=== PATIENT | male | born 1975 | race Two or more races ===

== ENCOUNTER → 2019-08-26 | Emergency (ER) | payer SELFPAY ==
[~2019-08-26] VITALS: Ht 175.3 cm; Wt 70.3 kg
--- NOTE | 2019-08-26 09:11 | NUR ---
ED Nurse Note: Pt came in for medical clearance and accompanied by ELVA. VSS on triage; pt's on RA, afebrile. Pt denies any pain nor discomfort.
[2019-08-26 09:14] VITALS: BP 154/68
[2019-08-26 09:17] VITALS: BP 154/68
--- NOTE | 2019-08-26 09:17 | NUR ---
ER DISCHARGE NOTE: Pt is cleared to be discharged per ERMD, pt is aox4, on room air, with stable vital signs. [employer] was given dc instructions, [employer] was able to verbalize understanding, pt id band removed. pt is able to ambulate with steady gait. pt took all belongings. Pt left ED escorted by [employer].
--- NOTE | 2019-08-26 12:11 | Emergency Room Report ---
History of Present Illness General Chief Complaint: Medical Clearance Source: Patient Present Illness HPI Patient was brought in for request of medical clearance for booking by [facility] department Patient at this time does not have any complaints Had apparently reported wrist discomfort from handcuffs He reports that that was yesterday however he does not feel any discomfort today The incident was being videotaped by [facility] department during the questioning Allergies: Coded Allergies: No Known Allergies (Unverified , 08/26/19) COVID-19 Screening Contact w/high risk pt: No Recent Travel to affected area: No Experienced COVID-19 symptoms?: No Patient History Past Medical History: see triage record Reviewed Nursing Documentation: PMH: Agreed; PSxH: Agreed Nursing Documentation-PM Past Medical History: No Stated History Review of Systems All Other Systems: negative except mentioned in HPI Physical Exam Vital Signs Date Time Temp Pulse Resp B/P (MAP) Pulse Ox O2 Delivery O2 Flow Rate FiO2 08/26/19 09:11 98.2 85 20 154/68 (96) 98 Room Air Sp02 EP Interpretation: reviewed, normal General Appearance: well appearing, no apparent distress Head: normocephalic, atraumatic Eyes: bilateral eye PERRL ENT: EOM grossly intact, normal pharynx Respiratory: no respiratory distress, no retraction, no accessory muscle use Musculoskeletal: normal inspection - Superficial macy noted in the shape of the handcuffs on both wrists, no obvious ecchymosis or bruising, wrist is freely mobile pulses intact Neurologic: alert, oriented x3 Psychiatric: normal inspection Skin: no rash Medical Decision Making Diagnostic Impression: Primary Impression: ok to book ER Course Patient essentially has no complaint at this time upon arrival reports that yesterday he felt the handcuffs were tight and were causing discomfort to the wrist however at this time he does not have any discomfort Patient has very minimal evaluation The evaluation through the emergency room reveals patient is hemodynamically stable and was further okay for booking Last Vital Signs Date Time Temp Pulse Resp B/P (MAP) Pulse Ox O2 Delivery O2 Flow Rate FiO2 08/26/19 09:17 98.2 85 21 154/68 99 Room Air Status: unchanged Disposition: LAW ENFORCEMENT IN CUST Condition: Stable Referrals: NOT CHOSEN IPA/,REFERRING (PCP) Departure Forms: Long-Term Clearance Patient Instructions: Medical Screening Exam Additional Instructions: Follow-up jennyfer DASILVA in the morning Juan Macias 6, 2020 12:11
== END ==
LOC: EMR 09:12
DX: M25.532 Pain in left wrist (principal); M25.531 Pain in right wrist
CPT/HCPCS: 99281